=== PATIENT | female | born 1995 | race Hispanic/Latino ===

== ENCOUNTER 2019-10-23 19:43 | Emergency (ER) | payer SELFPAY ==
[~2019-10-23] VITALS: Ht 149.9 cm; Wt 86.2 kg
[2019-10-23] MEDS ORDERED: ACETAMINOPHEN 325 MG TAB PO ONE (20:00)
[2019-10-23] MEDS ORDERED: ONDANSETRON HCL 4 MG ORAL DISINTEGRATING TAB PO ONE (20:00)
--- NOTE | 2019-10-23 20:17 | Emergency Department Note ---
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 Historian: Patient Arrival Mode: Car Onset (how long ago): day(s) (6) Location: ALL OVER, Quality: COUGH, NAUSE, VOMITING, BODY ACHES, FATIGUE Radiation: Reports non-radiation Severity: moderate Onset quality: gradual Duration (how long): day(s) (6) Timing of current episode: constant Progression: worsening Chronicity: new Context: Reports recent illness (COVID 19); Denies trauma/injury Relieving factors: none Exacerbating factors: none Associated symptoms: Reports chest pain, Reports cough, Reports fever/chills, Reports malaise, Reports nausea/vomiting, Reports shortness of breath, Reports weakness Treatments prior to arrival: none Past Medical/Family History Physician Review I have reviewed the patient's past medical and family history. Any updates have been documented here. Past Medical History Recent Fever: Yes Clinical Suspicion of Infectio: Yes New/Unexplained Change in Ment: No Past Medical History: Asthma Past Surgical History: None Social History Smoking Cessation: Never Smoker Alcohol Use: None Any Illegal Drug Use: No Physically hurt or threatened: No Other Any Pre-Existing Lines (PICC,: No Review of Systems Review of Systems Constitutional: Reports as per HPI EENTM: Reports no symptoms Cardiovascular: Reports no symptoms Respiratory: Reports as per HPI Gastrointestinal: Reports as per HPI Genitourinary: Reports no symptoms Musculoskeletal: Reports no symptoms Integumentary: Reports no symptoms Neurological: Reports no symptoms Psychological: Reports no symptoms Endocrine: Reports no symptoms Hematological/Lymphatic: Reports no symptoms Physical Exam Related Data Allergies: Coded Allergies: morphine (Verified Allergy, Intermediate, 10/23/19) Triage Vital Signs Vital Signs Date Time Temp Pulse Resp B/P (MAP) Pulse Ox O2 Delivery O2 Flow Rate FiO2 10/23/19 19:50 100.9 97 18 122/75 99 Room Air Vital signs reviewed: Yes Physical Exam CONSTITUTIONAL Constitutional: Present well-developed, Present well-nourished; Absent distressed HENT HENT: Present normocephalic, Present atraumatic, Present oropharynx clear/moist, Present nose normal HENT L/R: Present left ext ear normal, Present right ext ear normal EYES Eyes: Reports PERRL, Reports conjunctivae normal NECK Neck: Present ROM normal PULMONARY Pulmonary: Present effort normal, Present breath sounds normal CARDIOVASCULAR Cardiovascular: Present regular rhythm, Present heart sounds normal, Present capillary refill normal, Present normal rate GASTROINTESTINAL Abdominal: Present soft, Present nontender, Present bowel sounds normal GENITOURINARY Genitourinary: Present exam deferred SKIN Skin: Present warm, Present dry MUSCULOSKELETAL Musculoskeletal: Present ROM normal NEUROLOGICAL Neurological: Present alert, Present oriented x 3, Present no gross motor or sensory deficits PSYCHOLOGICAL Psychological: Present mood/affect normal, Present judgement normal Results Imaging Imaging results reviewed: Yes Impressions Procedure: [id number] DX/CHEST SINGLE (PORTABLE) Exam Date: Exam Time: REPORT STATUS: Signed EXAMINATION: CHEST SINGLE (PORTABLE) INDICATION:COUGH/SOB COMPARISON: None FINDINGS: TUBES and LINES: None. LUNGS: Normal lung volumes. Lungs are clear. No consolidations. PLEURA: No pleural effusion or pneumothorax. HEART AND MEDIASTINUM: The cardiomediastinal silhouette is unremarkable. BONES AND SOFT TISSUES: No acute osseous lesion. Soft tissues are unremarkable. UPPER ABDOMEN: No free air under the diaphragm. Linear density projecting over the soft tissues of the left hemithorax and axilla likely artifactual versus external to the patient. IMPRESSION: No acute thoracic radiographic abnormality. Signed by: Bibi Shaffer MD on 10/23/2019 8:31 PM Dictated By: BIBI SHAFFER MD 30 Transcribed By: VENANCIO on 10/23/192030 COPY TO: NANDINI WAITE MD~ Assessment & Plan Medical Decision Making MDM PT WITH COVID 19 WITH N/V,COUGH, FEVER CXR ORDERED TO EVAL FOR VIRAL PNEUMONIA, PNEUMOTHORAX TYLENOL 975 MG PO ORDERED ZOFRAN 0DT 4 MG 1 SL ORDERED Assessment & Plan Final Impression: (1) COVID-19 (2) Nausea & vomiting Depart Disposition: HOME, SELF-CARE Last Vital Signs Date Time Temp Pulse Resp B/P (MAP) Pulse Ox O2 Delivery O2 Flow Rate FiO2 10/23/19 19:50 100.9 97 18 122/75 99 Room Air Medications in the ED Acetaminophen 975 mg ONCE ONCE PO Last administered on 10/23/19at 20:03; Admin Dose 975 MG; Start 10/23/19 at 20:00; Stop 10/23/19 at 20:01; Status UNV Ondansetron HCl 4 mg ONCE ONCE PO Last administered on 10/23/19at 20:03; Admin Dose 4 MG; Start 10/23/19 at 20:00; Stop 10/23/19 at 20:01; Status UNV NANDINI WAITE MD Oct 23, 2019 20:17
--- NOTE | 2019-10-23 20:34 | Diagnostic Imaging Report ---
EXAMINATION: CHEST SINGLE (PORTABLE) INDICATION:COUGH/SOB COMPARISON: None FINDINGS: TUBES and LINES: None. LUNGS: Normal lung volumes. Lungs are clear. No consolidations. PLEURA: No pleural effusion or pneumothorax. HEART AND MEDIASTINUM: The cardiomediastinal silhouette is unremarkable. BONES AND SOFT TISSUES: No acute osseous lesion. Soft tissues are unremarkable. UPPER ABDOMEN: No free air under the diaphragm. Linear density projecting over the soft tissues of the left hemithorax and axilla likely artifactual versus external to the patient. IMPRESSION: No acute thoracic radiographic abnormality. Signed by: Braulio Aggarwal MD on 10/23/2019 8:31 PM
--- OUTSIDE RECORDS SUMMARY | 2019-10-23 21:46 | XMS REPORT | Continuity of Care Document ---
Author Author [facility] Organization [facility] Address [address] [place] [address] Phone Unavailable Care Team Providers Care Color Shop Helper Name Role Phone Justin WAITE Attphys Unavailable Problems This patient has no known problems. Allergies, Adverse Reactions, Alerts This patient has no known allergies or adverse reactions. Medications This patient has no known medications. Procedures This patient has no known procedures. Results Test Description Test Time Test Comments Results Result Comments Source CHEST SINGLE (PORTABLE) 2019-10-23 20:27:00 [place] [id number] Patient Name: HUMBERTO ALMEIDA MR #: [id number] : 1995 Age/Sex: 24/F Req #: [id number] Adm Physician: Ordered by: NANDINI WAITE MD Report #: [id number] Location: ER Room/Bed: Procedure: [id number] DX/CHEST SINGLE (PORTABLE) Exam Date: Exam Time: REPORT STATUS: Signed EXAMINATION: CHEST SINGLE (PORTABLE) INDICATION:COUGH/SOB COMPARISON: None FINDINGS: TUBES and LINES: None. LUNGS: Normal lung volumes. Lungs are clear. No consolidations. PLEURA: No pleural effusion or pneumothorax. HEART AND MEDIASTINUM: The cardiomediastinal silhouette is unremarkable. BONES AND SOFT TISSUES: No acute osseous lesion. Soft tissues are unremarkable. UPPER ABDOMEN: No free air under the diaphragm. Linear density projecting over the soft tissues of the left hemithorax and axilla likely artifactual versus external to the patient. IMPRESSION: No acute thoracic radiographic abnormality. Signed by: Bibi Shaffer MD on 10/23/2019 8:31 PM Dictated By: BIBI SHAFFER MD 30 Transcribed By: VENANCIO on 10/23/192030 COPY TO: NANDINI WAITE MD
== END 2019-10-23 20:57 | disposition home or self-care (01) ==
LOC: ER 19:45
DX: U07.1 COVID-19 (principal); R11.2 Nausea with vomiting, unspecified; R50.9 Fever, unspecified; R05 Cough; J45.909 Unspecified asthma, uncomplicated
CPT/HCPCS: 71045; 99283; Q0162